=== PATIENT | male | born 2000 | race Caucasian/White ===

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

== ENCOUNTER 2020-07-02 04:30 | Emergency (ER) | payer BC ==
[2020-07-02 04:42] VITALS: BP 137/82; PULSE 79
--- NOTE | 2020-07-02 04:45 | EDM.PDOC ---
ED HPI GENERAL MEDICAL PROBLEM - General Chief Complaint: Upper Extremity Injury/Pain Stated Complaint: SMASHED FINGER Time Seen by Provider: 07/02/20 04:32 - History of Present Illness INITIAL COMMENTS - FREE TEXT/NARRATIVE: 20-year-old male presents 5 hours after slamming his finger in a door patient has constant throbbing pain associated with a subungual hematoma that is preventing him from sleeping. No other injury no other complaint pain moderate and constant worsens with direct pressure no alleviating factors radiation or other associated symptoms. Right Finger-Ring Pain Score (Numeric/FACES): 10 - Related Data Allergies Allergy/AdvReac Type Severity Reaction Status Date / Time No Known Allergies Allergy Verified 07/02/20 04:38 Home Meds: Home Meds . 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) Neurological History: Reports: Other (See Below) Other Neuro History: Sycopal Episodes - Past Surgical History Cardiovascular Surgical History: Reports: Other (See Below) Other Cardiovascular Surgeries/Procedures: Loop recorder placed Social & Family History - Family History Family Medical History: Noncontributory - Caffeine Use Caffeine Use: Reports: Soda Caffeine Use Comment: Pt reports drinking 2 sodas a day Review of Systems - Review of Systems Review Of Systems: See Below Musculoskeletal: Reports: Other (Per HPI) Skin: Reports: No Symptoms Neurological: Reports: No Symptoms ED EXAM, GENERAL - Physical Exam Exam: See Below Free Text/Narrative:: General Appearance: No acute distress, appears comfortable Skin: No rash HEENT: Normocephalic/atraumatic, sclera anicteric, mucous membranes moist Neck: Normal range of motion Musculoskeletal: There is a subungual hematoma with associated tenderness of the fourth digit of the right hand significant tenderness over the distal phalanx no felon no paronychia range of motion is full sensation is intact digit is warm and well-perfused no tenderness swelling or deformity of the proximal finger or the hand Neurologic: Awake, alert, no obvious deficits, moving all extremities Psychiatric: Appropriate, cooperative Course - Vital Signs Last Recorded V/S: Last Vital Signs Temp 97.2 F 07/02/20 04:39 Pulse 79 07/02/20 04:39 Resp 14 07/02/20 04:39 BP 137/82 07/02/20 04:39 Pulse Ox 97 07/02/20 04:39 - Orders/Labs/Meds Orders: Active Orders 24 hr Category Date Time Status Fingers Fourth Digit Rt F8 [CR] Stat Exams 07/02/20 04:38 Ordered Departure - Departure Time of Disposition: 04:55 Disposition: Home, Self-Care 01 Condition: Good Clinical Impression: Subungual hematoma of right ring finger - Discharge Information *PRESCRIPTION DRUG MONITORING PROGRAM REVIEWED*: Not Applicable *COPY OF PRESCRIPTION DRUG MONITORING REPORT IN PATIENT THANG: Not Applicable Instructions: Subungual Hematoma, [id number] Referrals: Braydon De La Torre MD [Primary Care Provider] - Forms: ED Department Discharge Additional Instructions: Your symptoms should gradually improve over the next few days keep the finger clean and covered. If you develop any worsening pain swelling or redness to the area please return to the emergency room. The following information is given to patients seen in the emergency department who are being discharged to home. This information is to outline your options for follow-up care. We provide all patients seen in our emergency department with a follow-up referral. The need for follow-up, as well as the timing and circumstances, are variable depending upon the specifics of your emergency department visit. If you don't have a primary care physician on staff, we will provide you with a referral. We always advise you to contact your personal physician following an emergency department visit to inform them of the circumstance of the visit and for follow-up with them and/or the need for any referrals to a consulting specialist. The emergency department will also refer you to a specialist when appropriate. This referral assures that you have the opportunity for follow-up care with a specialist. All of these measure are taken in an effort to provide you with optimal care, which includes your follow-up. Under all circumstances we always encourage you to contact your private physician who remains a resource for coordinating your care. When calling for follow-up care, please make the office aware Sepsis Event Note (ED) - Focused Exam Vital Signs: Vital Signs Temp Pulse Resp BP Pulse Ox 07/02/20 04:39 97.2 F 79 14 137/82 97 - My Orders Last 24 Hours: My Active Orders 07/02/20 04:38 Fingers Fourth Digit Rt F8 [CR] Stat - Assessment/Plan Last 24 Hours: My Active Orders 07/02/20 04:38 Fingers Fourth Digit Rt F8 [CR] Stat Assessment:: 20-year-old male presenting with traumatic subungual hematoma potential for distal phalanx fracture as well. This is present then will cover with Augmentin for 7 days. After patient consent the nail was trephinated this led to a small amount of dark red blood as well as immediate significant improvement in the patient's symptoms. X-ray pending will splint if needed no findings of other trauma or injury extremity neurovascularly intact. No nailbed laceration certainly possible the trauma that would be induced removing the nail to repair this certainly would outweigh any potential benefit the base of the nail is atraumatic and intact. X-ray without sign of acute fracture, dressing applied patient discharged return precautions discussed and understood.
--- NOTE | 2020-07-02 05:06 | CR ---
Indication: Injury and pain Technique: Right 4th finger 3 views Comparison: None Findings: Bones: Alignment is normal. No fractures or bone lesions. Joint spaces: Unremarkable. Soft tissues: Unremarkable. Impression: No sign of acute injury. Dictated by Haile Quiroga MD @ Jul 02 2020 5:04AM Signed by Dr. Haile Quiroga @ Jul 02 2020 5:05AM
== END 2020-07-02 05:00 | disposition home or self-care (01) ==
LOC: MW.ED 04:30
DX: S60.141A Contusion of right ring finger with damage to nail, initial encounter (principal); W23.0XXA Caught, crushed, jammed, or pinched between moving objects, initial encounter
CPT/HCPCS: 11740; 73140-26-F8; 73140-F8; 99282; 99283-25

== ENCOUNTER 2021-11-20 09:46 | Emergency (ER) | payer BC, OTHER, SELFPAY ==
[2021-11-20 10:45] VITALS: PULSE 68
[2021-11-20 10:57] LABS: CORONAVIRUS COVID-19 NAA NEGATIVE (NEGATIVE); INFLUENZA A NAA NEGATIVE (NEGATIVE); INFLUENZA B NAA NEGATIVE (NEGATIVE)
[2021-11-20 11:06] LABS: BLOOD UREA NITROGEN,BUN 18 mg/dL (7.0-18.0); CARBON DIOXIDE,CO2 29.2 mmol/L (21.0-32.0); CHLORIDE,CL 108 mmol/L (98-107); GLUCOSE RANDOM 116 mg/dL (74-106); POTASSIUM,K 4.7 mmol/L (3.5-5.1); SODIUM,NA 142 mmol/L (136-148)
[2021-11-20 11:37] VITALS: BP 98/59
== END 2021-11-20 11:35 | disposition home or self-care (01) ==
LOC: MW.ED 09:46
DX: R07.89 Other chest pain (principal); Z20.822 Contact with and (suspected) exposure to COVID-19
CPT/HCPCS: 0240U; 36415; 71045; 80053; 84484; 85025; 93005; 99285

== ENCOUNTER 2022-08-22 15:04 | Emergency (ER) | payer BC ==
[2022-08-22 15:49] VITALS: BP 105/60
[2022-08-22 15:54] LABS: CARBON DIOXIDE,CO2 28.1 mmol/L (21.0-32.0); POTASSIUM,K 5.3 mmol/L (3.5-5.1)
[2022-08-22 18:42] VITALS: PULSE 72
== END 2022-08-22 18:19 | disposition home or self-care (01) ==
LOC: MW.ED 15:04
DX: I49.9 Cardiac arrhythmia, unspecified (principal)
CPT/HCPCS: 36415; 80053; 83735; 84484; 85025; 93005; 93010; 99284